=== PATIENT | male | born 1995 | race African-American/Black ===

== ENCOUNTER 2018-12-29 03:32 | Emergency (ER) | payer OTHER ==
[2018-12-29] MEDS: LORAZEPAM 1 MG TAB PO (05:02)
== END 2018-12-29 09:59 | disposition home or self-care (01) ==
LOC: E/R 03:32
DX: F15.10 Other stimulant abuse, uncomplicated (principal); F17.210 Nicotine dependence, cigarettes, uncomplicated
CPT/HCPCS: 99283; Z7502